=== PATIENT | female | born 1960 | race Caucasian/White ===

== ENCOUNTER 2018-06-28 12:35 | Observation (INO) ==
--- NOTE | 2018-06-28 13:03 | Emergency Department Note ---
Disposition Clinical Impression: TIA (transient ischemic attack), Weakness Disposition: Admitted As Inpatient Condition: Good Time of Disposition: 18:00 General Adult HPI - General Chief complaint: ED Neuro Symptoms/Deficit Stated complaint: R/O Stroke from UC Source: patient, family Limitations: no limitations Nursing Notes Reviewed: Yes Vital Signs Reviewed: Yes - History of Present Illness HPI Narrative: 57-year-old female with past medical history of hypertension, insulin-dependent diabetes, hyperlipidemia, and TIA presents for chief complaint of right-sided weakness that she noticed around 2:30 AM. She states that she felt fine when she went to bed at 10 PM. She going to the urgent care today because with her numbness and weakness to her right arm she thought she might of broken a bone. She was told of the urgent care that she probably had a stroke and should come to the hospital immediately. The patient notes subjective sensory deficit to the right upper and right lower extremity which is worse in the right upper extremity. She has weakness as well to the right upper and right lower extremity worse to the right upper extremity. She has mild dysarthria without any aphasia or confusion. She notes that she had a diffuse headache this morning which is unusual for her, but has remitted spontaneously. No associated fever, neck pain, vomiting, chest pain or shortness of breath, recent fall or injury, GI or symptoms. Pain Scale: 0 - Related Data Home Medications Medication Instructions Recorded Confirmed Albuterol Sulfate [Albuterol 1 puff IH Q6-8H PRN 06/28/18 06/28/18 Inhaler] Albuterol Sulfate [Proair Hfa] 2 puff IH Q6-12H PRN 06/28/18 06/28/18 Aripiprazole [Abilify] 15 mg PO HS 06/28/18 06/28/18 Citalopram Hydrobromide [Celexa] 60 mg PO HS 06/28/18 06/28/18 Colestipol HCl [Colestid] 2 gm PO BID 06/28/18 06/28/18 Empagliflozin [Jardiance] 25 mg PO DAILY 06/28/18 06/28/18 Furosemide [Lasix] 40 mg PO DAILY 06/28/18 06/28/18 Gabapentin [Neurontin] 800 mg PO QID 06/28/18 06/28/18 Insulin Glargine [Lantus] 12 unit SQ 06/28/18 06/28/18 Insulin LISPRO [HumaLOG] 0 units SQ TIDWM 06/28/18 06/28/18 Lisinopril [Zestril] 5 mg PO DAILY 06/28/18 06/28/18 Metformin HCl 1,000 mg PO BID 06/28/18 06/28/18 Morphine Sulfate [Morphine Sulfate 60 mg PO Q8-10H PRN 06/28/18 06/28/18 ER] Pantoprazole Sodium [Protonix] 40 mg PO DAILY 06/28/18 06/28/18 Potassium Chloride [K-Tab ER] 20 meq PO BID 06/28/18 06/28/18 Ropinirole HCl [Requip] 2 mg PO BID 06/28/18 06/28/18 Tizanidine HCl [Zanaflex] 4 mg PO TID 06/28/18 06/28/18 clonazePAM [Klonopin] 1 mg PO TID 06/28/18 06/28/18 Allergies Allergy/AdvReac Type Severity Reaction Status Date / Time NSAIDS (Non-Steroidal Allergy Rash Verified 06/13/16 21:52 Anti-Inflamma All systems ED: reviewed and negative except as stated. Past Medical History - Past Medical History Attestation: Yes The following information was validated with the patient. 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 NATUROPATHIC history: Reports: bilateral tubal ligation - Social History Smoking Status: Unknown if ever smoked Smokeless Tobacco Status: No Alcohol use: Reports: unknown Drug use: Reports: none Physical Exam - General Limitations: no limitations General appearance: alert, in no apparent distress - Head Head exam: atraumatic, normocephalic, normal inspection - Eye Eye exam: Present: normal appearance, PERRL, EOMI - ENT ENT exam: normal exam, normal oropharynx, mucous membranes moist - Neck Neck exam: Present: normal inspection, full ROM, trachea midline - Chest Chest inspection: Present: normal inspection, symmetric chest wall rise - Respiratory Respiratory exam: Present: normal lung sounds bilaterally - Cardiovascular Cardiovascular exam: Present: regular rate, normal rhythm, normal heart sounds - Abdominal Exam Abdominal exam: Present: soft, Non-Tender. Absent: tenderness, distention, guarding, rebound, rigidity - Extremities Exam Extremities exam: Present: normal inspection. Absent: tenderness, pedal edema, calf tenderness - Back Exam Back exam: Present: normal inspection, full ROM - Neurological Exam Neurological exam: Present: alert, other (Patient with normal extraocular motions and pupillary response. She has minimal dysarthria and flattened nasolabial fold on the right. She has minimal resistance to gravity in the right upper extremity. She has drift in the right lower extremity. She has subjective sensory deficit in the right upper and right lower extremity. Normal coordination other than to the right upper and right lower extremity which cannot be tested due to weakness. Normal cognition.) - Psychiatric Psychiatric exam: Present: normal affect, normal mood - Skin Skin exam: Present: warm, dry, intact Course Course Narrative: Patient was made a stroke alert after my initial assessment. Last known well was about 13 hours ago. EKG interpreted by me shows normal sinus rhythm at 78 with normal axis and intervals. Normal ST segments. Normal EKG. Stroke neurologist at [facility] Dr. Adhikari does not recommend TPA as patient is outside the window despite negative noncontrast CT scan of the brain. Dr. Adhikari recommends CTA head and neck to rule out large vessel occlusion prior to determination of disposition. CTA head and neck was negative. On reassessment, patient's symptoms are much better, but not completely resolved. Patient was given aspirin and admitted to medicine here for further evaluation and management of her right-sided weakness. Vital Signs Temperature 98.9 F 06/28/18 12:40 Pulse Rate 70 06/28/18 12:40 Respiratory Rate 18 06/28/18 12:40 Blood Pressure 162/72 06/28/18 12:40 O2 Sat by Pulse Oximetry 97 06/28/18 12:40 Temperature 98.4 F 06/28/18 18:48 Pulse Rate 85 06/28/18 18:48 Respiratory Rate 17 06/28/18 18:48 Blood Pressure 115/75 06/28/18 18:48 O2 Sat by Pulse Oximetry 91 06/28/18 18:48 Oxygen Delivery Oxygen Delivery Room Air Medical Decision Making - Lab Data Result diagrams: 06/28/18 12:56 06/28/18 12:56 Lab Results 06/28/18 06/28/18 06/28/18 Range/Units 12:44 12:56 12:56 WBC 7.4 (4.3-11.1) K/mcL RBC 4.00 (3.82-4.97) M/mcL Hgb 12.7 (11.5-15.4) g/dL Hct 38.9 (35.3-44.9) % MCV 97.3 (83.0-100.0) fL MCH 31.8 (28.0-33.3) pg MCHC 32.6 (31.6-35.5) g/dL RDW 12.7 (11.5-14.5) % Plt Count 169 (140-400) K/mcL MPV 11.1 (9.4-12.4) fL PT 10.9 (9.4-12.1) Seconds INR 1.0 APTT 31.1 (26.0-36.0) Seconds Sodium (136-145) mEq/L Potassium (3.5-5.1) mEq/L Chloride (98-107) mEq/L Carbon Dioxide (23-29) mEq/L BUN (6-20) mg/dL Creatinine (0.60-1.20) mg/dL Est GFR ( Amer) (> 60) Est GFR (Non-Af Amer) (> 60) BUN/Creatinine Ratio (6-26) Glucose (70-105) mg/dL POC Glucose 271 H (70-99) mg/dL Calculated Osmolality (280-300) Calcium (8.6-10.3) mg/dL Troponin I (< 0.04) ng/mL 06/28/18 Range/Units 12:56 WBC (4.3-11.1) K/mcL RBC (3.82-4.97) M/mcL Hgb (11.5-15.4) g/dL Hct (35.3-44.9) % MCV (83.0-100.0) fL MCH (28.0-33.3) pg MCHC (31.6-35.5) g/dL RDW (11.5-14.5) % Plt Count (140-400) K/mcL MPV (9.4-12.4) fL PT (9.4-12.1) Seconds INR APTT (26.0-36.0) Seconds Sodium 137 (136-145) mEq/L Potassium 4.1 (3.5-5.1) mEq/L Chloride 102 (98-107) mEq/L Carbon Dioxide 28 (23-29) mEq/L BUN 12 (6-20) mg/dL Creatinine 0.73 (0.60-1.20) mg/dL Est GFR ( Amer) > 60 (> 60) Est GFR (Non-Af Amer) > 60 (> 60) BUN/Creatinine Ratio 16 (6-26) Glucose 307 H (70-105) mg/dL POC Glucose (70-99) mg/dL Calculated Osmolality 295 (280-300) Calcium 9.1 (8.6-10.3) mg/dL Troponin I < 0.03 (< 0.04) ng/mL
[2018-06-28 13:19] LABS: Hematocrit 38.9 % (35.3-44.9); Hemoglobin 12.7 g/dL (11.5-15.4); Mean Corpuscular HGB Conc 32.6 g/dL (31.6-35.5); Mean Corpuscular Hemoglobin 31.8 pg (28.0-33.3); Mean Corpuscular Volume 97.3 fL (83.0-100.0); Mean Platelet Volume 11.1 fL (9.4-12.4); Platelet Count 169 K/mcL (140-400); Red Cell Distribution Width 12.7 % (11.5-14.5)
[2018-06-28 13:26] LABS: Prothrombin Time 10.9 Seconds (9.4-12.1)
[2018-06-28] MEDS ORDERED: Isovue-370 500 ML BOTTLE IVP ONE (13:27)
[2018-06-28 13:29] LABS: Activated Partial Thrombo Time 31.1 Seconds (26.0-36.0)
[2018-06-28 13:40] LABS: BUN/Creatinine Ratio 16 (6-26); Blood Urea Nitrogen 12 mg/dL (6-20); Calcium 9.1 mg/dL (8.6-10.3); Carbon Dioxide 28 mEq/L (23-29); Chloride 102 mEq/L (98-107); Glucose 307 mg/dL (70-105); Osmolality,Calculated 295 (280-300); Potassium 4.1 mEq/L (3.5-5.1); Sodium 137 mEq/L (136-145); Troponin I < 0.03 ng/mL (< 0.04); eGFR For Non-African Americans > 60 (> 60)
[2018-06-28] MEDS ORDERED: Aspirin 81 MG TAB.CHEW PO ONE (14:45)
[2018-06-28] MEDS ORDERED: *HR* Morphine Immed Rel 30 MG TABLET PO ONE (14:48)
--- NOTE | 2018-06-28 15:30 | Event Note ---
Date of Encounter: 06/28/18 Time of Encounter: 15:00 I saw evaluated and examined this patient and my medical decision-making was reviewed with the Resident Physician, Caity Adams. I agree with the documented findings, disposition and treatment plan as described except to any changes set forth below. We independently had [id number] contact with the patient. Patient with a history of diabetes, hypertension, hyperlipidemia who presented to the ER with complaints of right upper and lower extremity weakness and numbness. She reports that she woke up at around 2:30 with these symptoms. She thought she may have numbness due to not sleeping) she went back to bed. However this morning her symptoms did not resolve so she decided to come to the ER. Last known well time was around bedtime last night. By the time she came to the ER today, she will it was already 12 PM. So she was out of the window for TPA. She continues to have weakness in her right upper and lower extremity. She states that her family told her her speech is a little muffled. She denies any other deficits. No changes to vision. She had a TIA 20 years back and was on Plavix for some time. General: Patient is alert, no acute distress, oriented x 3 Head: atraumatic, normocephalic, ENT: Mucous membranes moist Eye: normal appearance, PERRL, no scleral icterus, no conjunctival injection Neck: normal inspection, trachea midline, full ROM, no carotid bruits Chest: normal inspection, symmetric chest rise Respiratory: Good respiratory effort. Normal breath sounds. No wheezing or crackles. Cardiovascular: Regular rate and rhythm. s1 and s2 normal No clicks, rubs, gallops, or murmurs. No pedal edema Abdomen: Abdomen is soft, nontender. Bowel sounds are present Musculoskeletal: Spontaneously moving all extremities Skin: warm, dry, intact. Neuro: Alert oriented x 3, decreased strength in right upper and lower extremities along with numbness. Patient does have slightly weak IX cranial nerve- unable to move tongue completely to the right. no facial palsy. Psych: Patient's affect is normal Possible acute ischemic stroke: Patient has right-sided weakness and some weakness of IX cranial nerve. Continue stroke workup. MRI of the brain. Monitor vital signs closely. Check A1c. Lipid profile. Aspirin, statin. 2-D echocardiogram. CTA of the head and neck does not show any significant stenosis. Telemetry monitoring. Diabetes mellitus type 2: Monitor blood sugars. Sliding scale insulin. Check A1c. Hypertension: Allow for permissive hypertension given possible acute stroke. Monitor blood pressure closely. DVT prophylaxis with subcutaneous heparin
--- NOTE | 2018-06-28 15:54 | Internal Med History&Physical ---
<Caity Adams E - Last Filed: 06/28/18 15:51> Date of Encounter: 06/28/18 Time of Encounter: 15:30 Internal Medicine - H&P: HPI Chief complaint: Right-sided weakness Admitted From: Home Plans for Post Hospital Care: Home History of present illness: Ms. Brewer is a 57 year old female past medical history of hypertension, insulin-dependent diabetes, hyperlipidemia, one instance of TIA, fibromyalgia for which she takes morphine and Percocet. Last night the patient was not feeling quite right, she said she was grumpy and just overall did not feel well. She went to bed around 10 PM due to not feeling well. Around 2:30 this morning she noticed that her right side was numb and weak, she thought she just laid on it wrong. She went to urgent care today due to numbness and weakness in her right arm. Her daughter had noticed that she had some slurring of her speech today. At the urgent care they told her to go directly to the ED. She denied any chest pain, shortness of breath, nausea, vomiting, diarrhea, fever, chills. She did state that she felt like her right side was weak in both her arm and leg as well as feeling that her mouth just did not move correctly. Head CT showed no intercranial abnormalities Head/neck CTA showed no high-grade stenosis or focal occlusion involving the i ntracranial or cervical vasculature. No evidence of acute distention. No evidence of aneurysm. Mildly prominent but subcentimeter cervical lymph nodes bilaterally. These do not meet CT size criteria for pathologic lymphadenopathy. These are conspicuous in number. Clinical correlation is recommended. Possible 17 mm right thyroid nodule. Recommend non-emergent outpatient thyroid ultrasound. Patient was admitted for possible stroke. Echocardiogram, carotid duplex, brain MRI ordered. Family history: Father's side cancer, hypertension, [place]- mother side hypertension, high cholesterol Social history; denies alcohol, smoking, illicit drug use Past Med Surg Social Fam HX - Past Medical History Medical history: diabetes Psychiatric history: anxiety, bipolar, depression - Past Surgical History Surgical History: no surgical history Additional surgical history: kidney stones. exploratory surgery - Social History Smoking Status: Unknown if ever smoked Smokeless Tobacco Status: No Alcohol use: unknown Drug use: none Internal Medicine - H&P: Meds Albuterol Sulfate [Albuterol Inhaler] 1 puff IH Q6-8H PRN 06/28/18 [History] Albuterol Sulfate [Proair Hfa] 2 puff IH Q6-12H PRN 06/28/18 [History] Aripiprazole [Abilify] 15 mg PO HS 06/28/18 [History] Citalopram Hydrobromide [Celexa] 60 mg PO HS 06/28/18 [History] Colestipol HCl [Colestid] 2 gm PO BID 06/28/18 [History] Empagliflozin [Jardiance] 25 mg PO DAILY 06/28/18 [History] Furosemide [Lasix] 40 mg PO DAILY 06/28/18 [History] Gabapentin [Neurontin] 800 mg PO QID 06/28/18 [History] Insulin Glargine [Lantus] 12 unit SQ HS 06/28/18 [History] Insulin LISPRO [HumaLOG] 0 units SQ TIDWM 06/28/18 [History] Lisinopril [Zestril] 5 mg PO DAILY 06/28/18 [History] Metformin HCl 1,000 mg PO BID 06/28/18 [History] Morphine Sulfate [Morphine Sulfate ER] 60 mg PO Q8-10H PRN 06/28/18 [History] Pantoprazole Sodium [Protonix] 40 mg PO DAILY 06/28/18 [History] Potassium Chloride [K-Tab ER] 20 meq PO BID 06/28/18 [History] Ropinirole HCl [Requip] 2 mg PO BID 06/28/18 [History] Tizanidine HCl [Zanaflex] 4 mg PO TID 06/28/18 [History] clonazePAM [Klonopin] 1 mg PO TID 06/28/18 [History] Allergy/AdvReac Type Severity Reaction Status Date / Time NSAIDS (Non-Steroidal Allergy Rash Verified 06/13/16 21:52 Anti-Inflamma All Systems PM: A 10-system review of systems was performed and is negative for pertinent findings except as documented above in the HPI. Review of systems: General: Denies change in appetite, change in weight, change in sleep patterns Heart: Patient denies racing heartbeat, applications, chest pain Respiratory: Patient denies shortness of breath, cough, chest congestion Head: Patient denies trauma, loss of consciousness EENT: Patient denies changes in vision, changes in hearing, sore throat, nasal discharge Musculoskeletal: Patient states she is had weakness in her right arm and right leg since early this morning, denies any weakness in her left side. Skin: Patient denies any rashes, new lesions Neuro: Patient does admit to having previous TIA 20 years ago, no focal deficits left from this TIA. She does state that she feels that she is having trouble talking and that she is mumbling her words. abdomen: Patient denies abdominal pain, nausea, vomiting, diarrhea : Patient denies dysuria, urgency, frequency - Constitutional Vitals: Temp Pulse Resp BP Pulse Ox 98.9 F 72 18 162/83 97 06/28/18 12:40 06/28/18 15:15 06/28/18 15:15 06/28/18 15:15 06/28/18 12:40 Exam: General: AAO 3, no acute distress, answers questions appropriately Head: normocephalic, atraumatic Eyes: CECILIA, no icterus Cardio: RRR, no mumurs, rubs, or gallops Respiratory: CTAB, no wheezing, rhonchi, rales Abd: normal bowel sounds, no gaurding or rigidity Extremties: no pedal edema, pulses equal bilaterally, warm Skin: warm, dry, intact Neuro: Focal deficits of facial nerve as well as cranial nerve IX noted by right corner of mouth droop and inability of patient to move tongue [id number]. Right-sided musculoskeletal weakness noted in both upper and lower extremities: upper right extremity showed 4 out of 5 strength testing while lower right extremity showed 3 out of 5 strength testing, no other focal deficits Internal Med - H&P Results - Labs CBC & Chem 7: 06/28/18 12:56 06/28/18 12:56 Labs: Short CBC 06/28/18 Range/Units 12:56 WBC 7.4 (4.3-11.1) K/mcL Hgb 12.7 (11.5-15.4) g/dL Hct 38.9 (35.3-44.9) % Plt Count 169 (140-400) K/mcL BMP 06/28/18 12:56 Sodium 137 Potassium 4.1 Chloride 102 Carbon Dioxide 28 BUN 12 Creatinine 0.73 Glucose 307 H Calcium 9.1 Cardiac Enzymes 06/28/18 Range/Units 12:56 Troponin I < 0.03 (< 0.04) ng/mL - Impressions ITS Impressions Head CT 06/28/18 12:56 IMPRESSION: No acute intracranial abnormality. Critical results were called by Dr. Azael Zee MD to Davis Jones DO on 06/28/2018 at 13:14. D/ / Azael Zee MD / Azael Zee MD Interpreting Provider: Azael Zee MD Head CTA 06/28/18 13:27 IMPRESSION: No high-grade stenosis or focal occlusion involving the intracranial or cervical vasculature. No evidence of acute dissection. No evidence of aneurysm. Mildly prominent but subcentimeter cervical lymph nodes bilaterally. These do not meet CT size criteria for pathologic lymphadenopathy. These are conspicuous in numbers. Clinical correlation is recommended. Possible 17 mm right thyroid nodule. Recommend nonemergent outpatient thyroid ultrasound. D/ /28/2018 14:20:26 Feng Noel MD / linda Interpreting Provider: Feng Noel MD Neck CTA 06/28/18 13:27 IMPRESSION: No high-grade stenosis or focal occlusion involving the intracranial or cervical vasculature. No evidence of acute dissection. No evidence of aneurysm. Mildly prominent but subcentimeter cervical lymph nodes bilaterally. These do not meet CT size criteria for pathologic lymphadenopathy. These are conspicuous in numbers. Clinical correlation is recommended. Possible 17 mm right thyroid nodule. Recommend nonemergent outpatient thyroid ultrasound. D/ /28/2018 14:20:26 Feng Noel MD / linda Interpreting Provider: Fneg Noel MD - Assessment and Plan (1) Acute ischemic stroke Current Visit: Yes Status: Acute Assessment and plan: Right-sided weakness in right upper and right lower extremities. 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 use Qualified Code(s): E11.8 - Type 2 diabetes mellitus with unspecified complications; Z79.4 - 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 (3) Fibromyalgia Current Visit: Yes Status: Acute Assessment and plan: Patient's home medications include oral morphine and Percocet Once these medications have been reconciled can restart (4) Hypertension Current Visit: Yes Status: Acute Assessment and plan: Allow for permissive hypertension Monitor blood pressure closely Qualifiers: Hypertension type: essential hypertension Qualified Code(s): I10 - Essential (primary) hypertension (5) DVT prophylaxis Current Visit: Yes Status: Acute Assessment and plan: Subcutaneous heparin - Time Spent With Patient Total time spent is greater than 50% in coordination of care (as documented) at patient's floor/unit and/or counseling patient: <Sharonda Cintron - Last Filed: 06/28/18 19:35> Date of Encounter: 06/28/18 Time of Encounter: 15:00 Internal Medicine - H&P: HPI Admitted From: Home History of present illness: Ms. Brewer is a 57 year old female Past Med Surg Social Fam HX - Past Medical History Attestation: Yes The following information was validated with the patient. Source: patient Medical history: diabetes, hypertension - Family History Father Hx Family Cardiac Disorders: Yes All Systems PM: A 10-system review of systems was performed and is negative for pertinent findings except as documented above in the HPI. - Constitutional Vitals: Temp Pulse Resp BP Pulse Ox 98.4 F 85 17 115/75 91 06/28/18 18:48 06/28/18 18:48 06/28/18 18:48 06/28/18 18:48 06/28/18 18:48 Internal Med - H&P Results - Labs CBC & Chem 7: 06/28/18 12:56 06/28/18 12:56 Labs: Short CBC 06/28/18 Range/Units 12:56 WBC 7.4 (4.3-11.1) K/mcL Hgb 12.7 (11.5-15.4) g/dL Hct 38.9 (35.3-44.9) % Plt Count 169 (140-400) K/mcL BMP 06/28/18 12:56 Sodium 137 Potassium 4.1 Chloride 102 Carbon Dioxide 28 BUN 12 Creatinine 0.73 Glucose 307 H Calcium 9.1 Cardiac Enzymes 06/28/18 Range/Units 12:56 Troponin I < 0.03 (< 0.04) ng/mL - Impressions ITS Impressions Head CT 06/28/18 12:56 IMPRESSION: No acute intracranial abnormality. Critical results were called by Dr. Azael Zee MD to Davis Jones DO on 06/28/2018 at 13:14. D/ / Azael Zee MD / Azael Zee MD Interpreting Provider: Azael Zee MD Head CTA 06/28/18 13:27 IMPRESSION: No high-grade stenosis or focal occlusion involving the intracranial or cervical vasculature. No evidence of acute dissection. No evidence of aneurysm. Mildly prominent but subcentimeter cervical lymph nodes bilaterally. These do not meet CT size criteria for pathologic lymphadenopathy. These are conspicuous in numbers. Clinical correlation is recommended. Possible 17 mm right thyroid nodule. Recommend nonemergent outpatient thyroid ultrasound. D/ /28/2018 14:20:26 Feng Noel MD / linda Interpreting Provider: Feng Noel MD Neck CTA 06/28/18 13:27 IMPRESSION: No high-grade stenosis or focal occlusion involving the intracranial or cervical vasculature. No evidence of acute dissection. No evidence of aneurysm. Mildly prominent but subcentimeter cervical lymph nodes bilaterally. These do not meet CT size criteria for pathologic lymphadenopathy. These are conspicuous in numbers. Clinical correlation is recommended. Possible 17 mm right thyroid nodule. Recommend nonemergent outpatient thyroid ultrasound. D/ /28/2018 14:20:26 Feng Noel MD / linda Interpreting Provider: Feng Noel MD Brain MRI 06/28/18 15:39 IMPRESSION: No acute infarct. D/ / Zander Inman MD / Zander Inman MD Interpreting Provider: Zadner Inman MD - Time Spent With Patient Total time spent is greater than 50% in coordination of care (as documented) at patient's floor/unit and/or counseling patient: - Stroke Is the patient on any antithrombotics?: No Are there any contradictions to antithrombotics?: No - Attending Attestation I saw evaluated and examined this patient and my medical decision-making was reviewed with the Resident Physician, Caity Adams. I agree with the documented findings, disposition and treatment plan as described except to any changes set forth below. We independently had [id number] contact with the patient. Patient with a history of diabetes, hypertension, hyperlipidemia who presented to the ER with complaints of right upper and lower extremity weakness and numbness. She reports that she woke up at around 2:30AM with these symptoms. She thought she may have numbness due to not sleeping) she went back to bed. However this morning her symptoms did not resolve so she decided to come to the ER. Last known well time was around bedtime last night. By the time she came to the ER today, she will it was already 12 PM. So she was out of the window for TPA. She continues to have weakness in her right upper and lower extremity. She states that her family told her her speech is a little muffled. She denies any other deficits. No changes to vision. She had a TIA 20 years back and was on Plavix for some time. General: Patient is alert, no acute distress, oriented x 3 Head: atraumatic, normocephalic, ENT: Mucous membranes moist Eye: normal appearance, PERRL, no scleral icterus, no conjunctival injection Neck: normal inspection, trachea midline, full ROM, no carotid bruits Chest: normal inspection, symmetric chest rise Respiratory: Good respiratory effort. Normal breath sounds. No wheezing or crackles. Cardiovascular: Regular rate and rhythm. s1 and s2 normal No clicks, rubs, ga llops, or murmurs. No pedal edema Abdomen: Abdomen is soft, nontender. Bowel sounds are present Musculoskeletal: Spontaneously moving all extremities Skin: warm, dry, intact. Neuro: Alert oriented x 3, decreased strength in right upper and lower extremities along with numbness. Patient does have slightly weak IX cranial nerve- unable to move tongue completely to the right. no facial palsy. Psych: Patient's affect is normal Possible acute ischemic stroke: Patient has right-sided weakness and some weakness of IX cranial nerve. Continue stroke workup. MRI of the brain. Monitor vital signs closely. Check A1c. Lipid profile. Aspirin, statin. 2-D echocardiogram. CTA of the head and neck does not show any significant stenosis. Telemetry monitoring. Diabetes mellitus type 2: Monitor blood sugars. Sliding scale insulin. Check A1c. Hypertension: Allow for permissive hypertension given possible acute stroke. Monitor blood pressure closely. DVT prophylaxis with subcutaneous heparin
[2018-06-28] MEDS ORDERED: *HR* Morphine Sulfate SR (12 HR) 60 MG TABLET.ER PO PRN (16:17)
[2018-06-28] MEDS ORDERED: D5% in Water 1,000 ML IVC PRN (16:20)
[2018-06-28] MEDS ORDERED: *HR* Dextrose 50 % in Water (Syg) 50 ML SYRINGE IVP PRN (16:20)
[2018-06-28] MEDS ORDERED: Dextrose Gel 15 GM/37.5 ML TUBE PO PRN ×2 (16:20)
[2018-06-28] MEDS: *HR* Heparin 5,000 UNIT/ML VIAL SQ SCH (17:44)
[2018-06-28] MEDS: Gabapentin 400 MG CAPSULE PO SCH ×2 (17:45→22:00)
[2018-06-28] MEDS: Insulin LISPRO 300 UNITS/3 ML VIAL SQ SCH (17:45)
[2018-06-28] MEDS ORDERED: Insulin LISPRO 300 UNITS/3 ML VIAL SQ SCH (21:00)
[2018-06-28] MEDS ORDERED: ARIPiprazole 10 MG TABLET PO SCH (21:00)
[2018-06-28] MEDS: rOPINIRole 1 MG TABLET PO SCH (21:59)
[2018-06-28] MEDS: clonazePAM 1 MG TABLET PO SCH (22:00)
[2018-06-28] MEDS ORDERED: *HR* Morphine Sulfate SR (12 HR) 30 MG TABLET.ER PO PRN (22:30)
[2018-06-28] MEDS ORDERED: NON-FORMULARY MEDICATION 1 EACH EACH (Insulin Glargine [Lantus] 12 UNIT) SQ SCH (22:45)
[2018-06-28] MEDS ORDERED: Insulin DETEMIR 100 UNIT/ML X5UNITS SQ SCH ×2 (22:45→23:00)
[2018-06-28] MEDS ORDERED: *HR* Morphine Sulfate SR (12 HR) 30 MG TABLET.ER PO SCH (23:00)
[2018-06-28] MEDS: *HR* Morphine Sulfate SR (12 HR) 30 MG TABLET.ER PO SCH (23:34)
[2018-06-29 02:22] LABS: Prothrombin Time 11.3 Seconds (9.4-12.1)
[2018-06-29 02:37] LABS: Alanine Aminotransferase 17 Units/L (7-52); Albumin 3.7 g/dL (3.5-5.7); Albumin/Globulin Ratio 1.5 (1.1-2.2); Alkaline Phosphatase 110 Units/L (34-104); Aspartate Amino Transferase 15 Units/L (13-39); BUN/Creatinine Ratio 25 (6-26); Bilirubin,Total 0.3 mg/dL (0.3-1.0); Blood Urea Nitrogen 16 mg/dL (6-20); Carbon Dioxide 29 mEq/L (23-29); Chloride 103 mEq/L (98-107); Chol/HDL Ratio 3.1 (0-4.9); Cholesterol 154 mg/dL (< 200); Globulin 2.5 g/dL (2.4-3.5); Glucose 238 mg/dL (70-105); HDL Cholesterol 50 mg/dL (40-59); LDL Cholesterol,Calculated 68 mg/dL (0-99); Osmolality,Calculated 297 (280-300); Sodium 139 mEq/L (136-145); Total Protein 6.2 g/dL (6.4-8.9); Triglycerides 178 mg/dL (< 150); Troponin I < 0.03 ng/mL (< 0.04); eGFR For Non-African Americans > 60 (> 60)
[2018-06-29] MEDS: *HR* Heparin 5,000 UNIT/ML VIAL SQ SCH ×2 (05:19→17:09)
[2018-06-29 08:03] LABS: Bilirubin,Urine Negative (Negative); Blood,Urine Negative (Negative); Clarity,Urine Clear (Clear); Color,Urine Yellow (Yellow); Glucose,Urine (UA) 100 mg/dL (Normal); Ketones,Urine Negative (Negative); Leukocyte Esterase,Urine Negative (Negative); Nitrite,Urine Negative (Negative); PH,Urine 5.5 pH Units (5.0-8.0); Protein,Urine Trace mg/dL (Neg-Trace); Specific Gravity,Urine > 1.030 (1.010-1.025); Urobilinogen,Urine Normal (Normal)
[2018-06-29] MEDS: rOPINIRole 1 MG TABLET PO SCH (08:09)
[2018-06-29] MEDS: *HR* Morphine Sulfate SR (12 HR) 30 MG TABLET.ER PO SCH ×2 (08:09→15:48)
[2018-06-29] MEDS: Gabapentin 400 MG CAPSULE PO SCH ×3 (08:10→17:08)
[2018-06-29] MEDS: Insulin LISPRO 300 UNITS/3 ML VIAL SQ SCH ×3 (08:10→17:08)
[2018-06-29] MEDS: clonazePAM 1 MG TABLET PO SCH ×2 (08:10→15:49)
[2018-06-29] MEDS: *HR* OxyCODONE/APAP 10/325 TABLET PO PRN ×2 (08:17→15:52)
[2018-06-29] MEDS ORDERED: Perflutren Lipid Microsphere 1.3 ML in 0.9 % Sodium Chloride 8.7 ML IVP ONE (08:20)
[2018-06-29] MEDS ORDERED: Aspirin 81 MG TAB.CHEW PO SCH (09:00)
[2018-06-29] MEDS ORDERED: Furosemide 40 MG TABLET PO SCH (09:00)
[2018-06-29 10:14] LABS: Estimated Average Glucose 217 mg/dl; Hemoglobin A1C 9.2 %
--- NOTE | 2018-06-29 11:48 | Neurology - Consult Note ---
<Tucker Dietrich J - Last Filed: 06/29/18 16:49> Date of Encounter: 06/29/18 Time of Encounter: 11:42 Assessment and Plan (1) TIA (transient ischemic attack) Status: Acute CVA ruled out DDX; TIA, Complex migraine, vs supratentorial She presented with h/a, and monocular diplopia, right facial droop, slurred speech, right arm/leg weakness and numbness All sx resolved with the exception of Rt arm weakness; now having burning and tingling in right arm Multiple risk factors for CVA including obesity, DM, HLD, HTN, prior history of TIA With concerns for CVA neuroimaging obtained; MRI brain negative for acute infarct CTA head and neck, CT head unremarkable Neuro exam today reveals some give way weakness and right arm otherwise is nonfocal Today she is reporting right posterior neck pain with pain radiating into right shoulder and right arm Pain is described as burning/tingling. She does have UMN findings with diffuse hyperreflexia As such, one could consider myelopathy in differential; MRI C-spine pending If normal may need outpatient f/u with EMG if s/x persist Recommendations d/w IM team History of Present Illness Chief complaint: Right-sided weakness HPI: Ms. Brewer is a 57 year old female with a PMH of anxiety, bipolar, depression, diabetes, HLD, HTN, TIA and fibromyalgia. She presents to [facility] with concerns for stroke. She reports that she went to bed yesterday evening shortly after 10 PM and overall just felt unwell. At around approximately 2:30 AM on 06/28 she awoke with a headache behind her right eye, and noticed that she was having right arm and leg numbness and weakness. However, she reports that she went back to sleep. She will reawoke a little later in the morning and noticed that the numbness and weakness in the right arm and leg persisted prompting evaluation in the urgent care and then subsequently the emergency department. She states that family members noticed some right facial droop and she was having some slurred speech as well. She denies any dizziness, ataxia, visual changes, dysphagia, chest pain, palpitations, nausea, vomiting, diarrhea, urina ry symptoms. At the time of my assessment this morning she reports that her symptoms have improved significantly but notes that her right arm is still weaker than her left. She reports that this morning she is now experiencing burning and numbness in her right arm as well as having posterior neck pain and her headache has returned. Stroke workup included a CT of the head which was unremarkable. An MRI of the brain was also obtained and was also unremarkable. CTA of the head and neck showed no high-grade stenosis or focal occlusion of intracranial cervical vasculature. Past Med Surg Social Fam HX - Past Medical History Medical history: diabetes, hypertension Psychiatric history: anxiety, bipolar, depression - Past Surgical History Surgical History: hysterectomy Additional surgical history: kidney stones. exploratory surgery - Social History Smoking Status: Never smoker Smokeless Tobacco Status: No Alcohol use: none Drug use: none - Family History Father Hx Family Cardiac Disorders: Yes Medications and Allergies Albuterol Sulfate [Albuterol Inhaler] 1 puff IH Q6-8H PRN 06/28/18 [History] Albuterol Sulfate [Proair Hfa] 2 puff IH Q6-12H PRN 06/28/18 [History] Aripiprazole [Abilify] 15 mg PO HS 06/28/18 [History] Citalopram Hydrobromide [Celexa] 60 mg PO HS 06/28/18 [History] Colestipol HCl [Colestid] 2 gm PO BID 06/28/18 [History] Empagliflozin [Jardiance] 25 mg PO DAILY 06/28/18 [History] Furosemide [Lasix] 40 mg PO DAILY 06/28/18 [History] Gabapentin [Neurontin] 800 mg PO QID 06/28/18 [History] Insulin Glargine [Lantus] 12 unit SQ HS 06/28/18 [History] Insulin LISPRO [HumaLOG] 0 units SQ TIDWM 06/28/18 [History] Lisinopril [Zestril] 5 mg PO DAILY 06/28/18 [History] Metformin HCl 1,000 mg PO BID 06/28/18 [History] Morphine Sulfate [Morphine Sulfate ER] 60 mg PO Q8-10H PRN 06/28/18 [History] Pantoprazole Sodium [Protonix] 40 mg PO DAILY 06/28/18 [History] Percocet 10/325 MG 20 mg PO Q8H PRN 06/28/18 [History] Potassium Chloride [K-Tab ER] 20 meq PO BID 06/28/18 [History] Ropinirole HCl [Requip] 2 mg PO BID 06/28/18 [History] Tizanidine HCl [Zanaflex] 4 mg PO TID 06/28/18 [History] clonazePAM [Klonopin] 1 mg PO TID 06/28/18 [History] Aspirin 81 mg PO DAILY #30 tab.chew 06/29/18 [Rx] Atorvastatin [Lipitor] 40 mg PO HS #30 tablet 06/29/18 [Rx] Allergy/AdvReac Type Severity Reaction Status Date / Time NSAIDS (Non-Steroidal Allergy Rash Verified 06/13/16 21:52 Anti-Inflamma All Systems: The remainder of the systems were reviewed and are negative Review of Systems: REVIEW OF SYSTEMS GENERAL: Negative for any nausea, vomiting, fevers, chills NEUROLOGIC: Negative for any visual changes, dysphagia, ataxia Positive-slurred speech, right facial droop, right arm/leg weakness. Today is reporting a headache behind her right eye and right-sided neck pain with pain radiating to right shoulder and arm. Right arm numbness PSYCH: Positive-anxiety HEENT: Negative for any head trauma, neck trauma, neck stiffness CARDIAC: Negative for any chest pain, dyspnea, palpitations GENITOURINARY: Negative for any dysuria, hematuria, incontinence. MUSCULOSKELETAL: Positive-right arm and leg weakness, decreased activity tolerance Physical Examination - Vital Signs Vital Signs: Initial Vital Signs Temp Pulse Resp BP Pulse Ox 98.9 F 70 18 162/72 97 06/28/18 12:40 06/28/18 12:40 06/28/18 12:40 06/28/18 12:40 06/28/18 12:40 - Exam Exam: Examination: General Examination: *CONSTITUTIONAL: Alert and oriented x3, no acute distress, *GENERAL APPEARANCE OF PATIENT obese female, overall generally healthy- appearing *EYES: pupils equal, round, reactive to light and accommodation, conjunctiva clear *CARDIOVASCULAR RRR, no peripheral edema, distal temperature normal, dorsalis pedis pulses normal. 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 Has give way weakness of right arm. However, patient was witnessed to use right arm to push herself up in bed and pull herself up out of bed without any noted weakness. 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 *MUSCLE TONE IN THE UPPER AND LOWER EXTREMITIES normal. No abnormal movements, fasciculations or atrophy identified. Neurological: *ORIENTATION to person, situation, time and place *RECURRENT AND REMOTE MEMORY intact *ATTENTION AND CONCENTRATION are normal *LANGUAGE FUNCTION no significant aphasia or dysarthia was noted. *FUND OF KNOWLEDGE aware of current events, past history, vocabulary *MENTAL attention span and concentration normal. *CN II optic fundi were normal, no papilledema noted. *CN III,IV, PERRLA extraocular eye movements were full, no nystagmus and no ptosis noted. *CN V shows normal sensation and jaw opens symmetrically. *CN VII shows normal facial movement symmetrically, upper and lower bilaterally. *CN VIII shows no significant hearing loss on exam *CN IX,,X palate elevated symmetrically *CN XI normal strength in the sternocleidomastoid muscles, symmetrical shoulder shrugging. *CN XII tongue protruded in the midline, with normal strength and movement. *SENSORY EXAMINATION light touch intact *REFLEXES: deep tendon reflexes were hyperreflexic bilaterally, bicep, tricep, brachial radialis, patellar and Achilles *CEREBELLAR TESTING normal finger to nose, heel/knee/daniel *PAIN LEVEL 6/10 headache behind her right eye, right posterior neck pain, burning/tingling right arm pain Results - Laboratory Findings CBC and BMP: 06/28/18 12:56 06/29/18 02:03 Abnormal lab findings: Abnormal lab results Glucose 238 mg/dL (70-105) H 06/29/18 02:03 POC Glucose 272 mg/dL (70-99) H 06/28/18 16:06 9.2 % (-5.6) H 06/29/18 02:03 110 Units/L (34-104) H 06/29/18 02:03 6.2 g/dL (6.4-8.9) L 06/29/18 02:03 Triglycerides 178 mg/dL (< 150) H 06/29/18 02:03 VLDL Cholesterol, Calc 36 mg/dL (< 31) H 06/29/18 02:03 Ur Specific [place] > 1.030 (1.010-1.025) H 06/29/18 07:30 100 mg/dL (Normal) H 06/29/18 07:30 - Diagnostic Findings Additional findings: MR/MR head/brain wo con IMPRESSION: No acute infarct. Consult Discharge Plan - Plan Instructions: Diabetes Mellitus Type 2 in Adults (DC) Additional Instructions: 1. Continue Aspirin and Atorvastatin 2. Follow-up with Neurology as directed for more testing 3. Return to the ED for recurrent symptoms Referrals: Diogo Salvador MD [Primary Care Provider] - (Appointment has been requested. ) Prescriptions: Aspirin 81 mg PO DAILY #30 tab.chew Atorvastatin [Lipitor] 40 mg PO HS #30 tablet <Yosi Causey - Last Filed: 06/29/18 18:21> Date of Encounter: 06/29/18 Assessment and Plan (1) TIA (transient ischemic attack) Status: Acute Ultimately I believe that we are either dealing with complicated migraine, or perhaps other supratentorial influences may be at play. She does have diffuse hyperreflexia, as well as an MRI of the cervical spine that does reveal some minor abnormalities however does not completely explain this case. In any regard I feel it is okay for her to be discharged home and follow-up with me as an outpatient. Likely complete an EMG of the left upper extremity at that time. I agree with the documentation of the YARD COUPLER as stated above. History of Present Illness HPI: I have personally performed a [id number] assessment of the patient and have reviewed the PA/MUD PLANT OPERATOR note. My impressions are as follows: I agree with the history of present illness documented as above by the YARD COUPLER. Patient presents with a right-sided headache followed by right upper extremity and lower extremity weakness and paresthesia. She has had CTA of the brain and neck as well as MRI of the brain neither of which revealed evidence of acute ischemia or evidence of stenosis. Suspect that this phenomenon may be based on migraine pathology. All Systems: The remainder of the systems were reviewed and are negative Review of Systems: The balance of the systems review is negative. Physical Examination - Vital Signs Vital Signs: Initial Vital Signs Temp Pulse Resp BP Pulse Ox 98.9 F 70 18 162/72 97 06/28/18 12:40 06/28/18 12:40 06/28/18 12:40 06/28/18 12:40 06/28/18 12:40 - Exam Exam: I have personally performed a [id number] assessment of the patient and have reviewed the PA/MUD PLANT OPERATOR note. My impressions are as follows: I did perform a complete independent neurologic examination of this patient. I concur with the neurologic examination documented above. Results - Laboratory Findings CBC and BMP: 06/28/18 12:56 06/29/18 02:03 Abnormal lab findings: Abnormal lab results Glucose 238 mg/dL (70-105) H 06/29/18 02:03 POC Glucose 201 mg/dL (70-99) H 06/29/18 15:38 9.2 % (-5.6) H 06/29/18 02:03 110 Units/L (34-104) H 06/29/18 02:03 6.2 g/dL (6.4-8.9) L 06/29/18 02:03 Triglycerides 178 mg/dL (< 150) H 06/29/18 02:03 VLDL Cholesterol, Calc 36 mg/dL (< 31) H 06/29/18 02:03 Ur Specific [place] > 1.030 (1.010-1.025) H 06/29/18 07:30 100 mg/dL (Normal) H 06/29/18 07:30
--- NOTE | 2018-06-29 14:44 | Internal Med Progress Note ---
Hospitalist Progress Note - Encounter Date of Encounter: 06/29/18 - Exam Vitals: Temp Pulse Resp BP Pulse Ox 98.0 F 81 18 110/76 97 06/29/18 11:55 06/29/18 11:55 06/29/18 11:56 06/29/18 11:55 06/29/18 11:56 - Time Spent with Patient Total time spent is greater than 50% in coordination of care (as documented) at patient's floor/unit and/or counseling patient: Internal Medicine: Result - Labs CBC & Chem 7: 06/28/18 12:56 06/29/18 02:03 Labs: BMP 06/29/18 02:03 Sodium 139 Potassium 4.0 Chloride 103 Carbon Dioxide 29 BUN 16 Creatinine 0.63 Glucose 238 H Calcium 9.0 Cardiac Enzymes 06/29/18 Range/Units 02:03 Troponin I < 0.03 (< 0.04) ng/mL Liver Function 06/29/18 Range/Units 02:03 Total Bilirubin 0.3 (0.3-1.0) mg/dL AST 15 (13-39) Units/L ALT 17 (7-52) Units/L Alkaline Phosphatase 110 H (34-104) Units/L Albumin 3.7 (3.5-5.7) g/dL Urine 06/29/18 Range/Units 07:30 Urine Color Yellow (Yellow) Urine Clarity Clear (Clear) Urine pH 5.5 (5.0-8.0) pH Units Ur Specific [place] > 1.030 H (1.010-1.025) Urine Protein Trace (Neg-Trace) mg/dL Urine Glucose (UA) 100 H (Normal) mg/dL - ABG Interpretation ABG results: PT/INR, D-dimer PT 11.3 Seconds (9.4-12.1) 06/29/18 02:03 - Impressions Impressions Head CTA 06/28/18 13:27 IMPRESSION: 1. No high-grade stenosis or focal occlusion involving intracranial or cervical vasculature. No evidence of acute dissection. No evidence of aneurysm. 2. Mildly prominent but subcentimeter cervical lymph nodes bilaterally. These do not meet CT size criteria for pathologic lymphadenopathy. However, these are conspicuous in numbers. Clinical correlation is recommended. 3. Possible 17 mm right thyroid nodule. Recommend nonemergent outpatient thyroid ultrasound. RECOMMENDATIONS: Managing Incidental Thyroid Nodule Detected at CT or MRI or US 1. Further evaluation by thyroid Ultrasound recommended for these incidental nodules: Patient Age 18 years or less - Nodule of any size Patient Age 19-34 years old - Nodule 1 cm in size or greater Patient Age 35 years or more - Nodule 1.5 cm in size or greater Note: These recommendations do not apply to pts. w/ increased risk for thyroid cancer or pts. with symptomatic thyroid disease. Recommendations for f/u of Incidental Thyroid Nodules (ITN) found on CT, MR, NM and Extrathyroidal US are based upon the ACR white paper and Go 3-tiered system for managing ITNs: J Am Inocencia Radiol. 2015 Mar;12(2): 143-50 D/ /28/2018 14:20:26 Feng Noel MD / [facility] Interpreting Provider: Feng Noel MD Neck CTA 06/28/18 13:27 IMPRESSION: 1. No high-grade stenosis or focal occlusion involving intracranial or cervical vasculature. No evidence of acute dissection. No evidence of aneurysm. 2. Mildly prominent but subcentimeter cervical lymph nodes bilaterally. These do not meet CT size criteria for pathologic lymphadenopathy. However, these are conspicuous in numbers. Clinical correlation is recommended. 3. Possible 17 mm right thyroid nodule. Recommend nonemergent outpatient thyroid ultrasound. RECOMMENDATIONS: Managing Incidental Thyroid Nodule Detected at CT or MRI or US 1. Further evaluation by thyroid Ultrasound recommended for these incidental nodules: Patient Age 18 years or less - Nodule of any size Patient Age 19-34 years old - Nodule 1 cm in size or greater Patient Age 35 years or more - Nodule 1.5 cm in size or greater Note: These recommendations do not apply to pts. w/ increased risk for thyroid cancer or pts. with symptomatic thyroid disease. Recommendations for f/u of Incidental Thyroid Nodules (ITN) found on CT, MR, NM and Extrathyroidal US are based upon the ACR white paper and Go 3-tiered system for managing ITNs: J Am Inocencia Radiol. 2015 Mar;12(2): 143-50 D/ / 06/28/2018 14:20:26 Feng Noel MD / linda Interpreting Provider: Feng Noel MD Brain MRI 06/28/18 15:39 IMPRESSION: No acute infarct. D/ / Zander Inman MD / Zander Inman MD Interpreting Provider: Zander Inman MD Cervical Spine MRI 06/29/18 12:17 IMPRESSION: Limited by motion artifacts. Multilevel degenerative disc disease as described above, exacerbating congenitally narrow cervical spinal canal. Spinal canal narrowing, mild to moderate at C6-7 with mild spinal cord compression, mild at C5-6, minimal at C2-3, C3-4 and C4-5. Foraminal narrowing, moderate at right C6-7, mild to moderate at left C6-7, minimal at right C4-5 and right C5-6. Abnormal bone marrow signal in the C5 vertebral body, likely related to atypical hemangioma. D/ / Mayco Wright MD / Mayco Wright MD Interpreting Provider: Mayco Wright MD Echocardiogram 06/29/18 15:33 Impressions: LVEF 60%. Normal LV chamber size, wall thickness and function. Normal right ventricular structure and function. Mild tricuspid regurgitation. No evidence of pulmonary hypertension. Non-diagnostic of PFO with agitated saline contrast. Left Ventricular Wall Motion: Rest Echo Findings All wall segments showed normal motion. Findings: Study Quality * Technically adequate exam. ECG Findings * Normal sinus rhythm. Left Ventricle * LVEF 60%. * Normal LV chamber size, wall thickness and systolic function. * Normal left ventricular diastolic function. Right Ventricle * Normal right ventricular structure and function. Left Atrium * Normal left atrial size. Right Atrium * Normal right atrial size. Interatrial Septum * Non-diagnostic of PFO with agitated saline contrast. Aortic Valve * Trileaflet aortic valve with normal function. * No aortic stenosis. * No aortic regurgitation. Mitral Valve * Normal mitral valve structure and function. * No mitral stenosis. * No mitral regurgitation. Tricuspid Valve * Normal tricuspid valve structure. * No tricuspid stenosis. * Mild tricuspid regurgitation. * Unable to estimate RVSP due to lack of IVC visualization. RV-RA gradient 18 mmHg. * No evidence of pulmonary hypertension. Pulmonic Valve * Pulmonic valve is not well visualized. * No pulmonic stenosis. * No pulmonic regurgitation. Aorta * Normally sized aortic root. Pericardium * The pericardium appears normal. IVC * The IVC is not well evaluated. Consult Discharge Plan - Plan Referrals: Diogo Salvador MD [Primary Care Provider] - (Appointment has been requested. )
[2018-06-29 15:40] VITALS: BP 112/77
--- NOTE | 2018-06-29 16:50 | Discharge Summary ---
<Yosi Johansen - Last Filed: 06/29/18 17:09> - NOTES TO OUTPATIENT PROVIDER Notes to Outpatient Provider: F/u with neuro for possible EMG. Started on Statin and ASA. 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 Brewer is a 57 year old female with history of diabetes and hyperlipidemia who presented to the ED with several hour history of right-sided upper and lower extremity weakness as well as difficulty speaking. The patient was admitted for workup of suspected ischemic stroke and had CT of the head and neck initially which did not demonstrate high-grade stenosis or focal occlusion in the intracranial or cervical vasculature. The patient did have follow-up MRI of the brain which did not demonstrate any acute intracranial process. The patient did have carotid ultrasounds which were essentially normal as well as an echocardiogram which was also essentially normal. Her symptoms did largely resolved by the following day however we did get a neurology consult who recommended an MRI of the cervical spine which showed multilevel degenerative disc disease as well as spinal canal narrowing at multiple levels and foraminal narrowing at multiple levels. As her symptoms have largely resolved with the exception of some residual weakness in her right upper extremity with some burning and tingling, neurology recommends outpatient follow-up. The patient will be discharged to follow-up with PCP and neurology as an outpatient for possible EMG. Discharge discussed with: patient, nurse, social work, case management, micro[employer] dynamics consultant - Time Spent with Patient Total time spent providing and/or coordinating discharge services: - Discharge Medications Prescriptions: New Atorvastatin [Lipitor] 40 mg PO HS #30 tablet Aspirin 81 mg PO DAILY #30 tab.chew Continued Citalopram Hydrobromide [Celexa] 60 mg PO HS Tizanidine HCl [Zanaflex] 4 mg PO TID Ropinirole HCl [Requip] 2 mg PO BID Albuterol Sulfate [Proair Hfa] 2 puff IH Q6-12H PRN PRN Reason: Wheezing Potassium Chloride [K-Tab ER] 20 meq PO BID Pantoprazole Sodium [Protonix] 40 mg PO DAILY Morphine Sulfate [Morphine Sulfate ER] 60 mg PO Q8-10H PRN PRN Reason: Pain Metformin HCl 1,000 mg PO BID Lisinopril [Zestril] 5 mg PO DAILY Insulin Glargine [Lantus] 12 unit SQ HS Empagliflozin [Jardiance] 25 mg PO DAILY Insulin LISPRO [HumaLOG] 0 units SQ TIDWM Gabapentin [Neurontin] 800 mg PO QID Furosemide [Lasix] 40 mg PO DAILY Colestipol HCl [Colestid] 2 gm PO BID clonazePAM [Klonopin] 1 mg PO TID Albuterol Sulfate [Albuterol Inhaler] 1 puff IH Q6-8H PRN PRN Reason: Wheezing Aripiprazole [Abilify] 15 mg PO HS Percocet 10/325 MG 20 mg PO Q8H PRN PRN Reason: Pain Home Medications: Albuterol Sulfate [Albuterol Inhaler] 1 puff IH Q6-8H PRN 06/28/18 [History] Albuterol Sulfate [Proair Hfa] 2 puff IH Q6-12H PRN 06/28/18 [History] Aripiprazole [Abilify] 15 mg PO HS 06/28/18 [History] Citalopram Hydrobromide [Celexa] 60 mg PO HS 06/28/18 [History] Colestipol HCl [Colestid] 2 gm PO BID 06/28/18 [History] Empagliflozin [Jardiance] 25 mg PO DAILY 06/28/18 [History] Furosemide [Lasix] 40 mg PO DAILY 06/28/18 [History] Gabapentin [Neurontin] 800 mg PO QID 06/28/18 [History] Insulin Glargine [Lantus] 12 unit SQ HS 06/28/18 [History] Insulin LISPRO [HumaLOG] 0 units SQ TIDWM 06/28/18 [History] Lisinopril [Zestril] 5 mg PO DAILY 06/28/18 [History] Metformin HCl 1,000 mg PO BID 06/28/18 [History] Morphine Sulfate [Morphine Sulfate ER] 60 mg PO Q8-10H PRN 06/28/18 [History] Pantoprazole Sodium [Protonix] 40 mg PO DAILY 06/28/18 [History] Percocet 10/325 MG 20 mg PO Q8H PRN 06/28/18 [History] Potassium Chloride [K-Tab ER] 20 meq PO BID 06/28/18 [History] Ropinirole HCl [Requip] 2 mg PO BID 06/28/18 [History] Tizanidine HCl [Zanaflex] 4 mg PO TID 06/28/18 [History] clonazePAM [Klonopin] 1 mg PO TID 06/28/18 [History] Aspirin 81 mg PO DAILY #30 tab.chew 06/29/18 [Rx] Atorvastatin [Lipitor] 40 mg PO HS #30 tablet 06/29/18 [Rx] Allergies/Adverse Reactions: Allergy/AdvReac Type Severity Reaction Status Date / Time NSAIDS (Non-Steroidal Allergy Rash Verified 06/13/16 21:52 Anti-Inflamma Date of admission: 06/28/18 15:16 Primary care physician: Diogo Salvador MD Consults: 06/29/18 08:52 Consult to Neurology [CONS] Routine Consulting Provider: [facility] Reason for Consult: right sided weakness Time Notified: 08:52 Call Completed: Yes Discharging clinician: Yosi Johansen Anticipated date of discharge: 06/29/18 - Constitutional Vitals: Temp Pulse Resp BP Pulse Ox 98.2 F 84 17 112/77 92 06/29/18 15:37 06/29/18 15:37 06/29/18 15:37 06/29/18 15:37 06/29/18 15:37 Exam: Gen: Vitals noted. No acute distress. Eyes: anicteric sclerae, moist conjunctivae; no lid-lag; Pupils equal and reactive to light HENT: Atraumatic; oropharynx clear with moist mucous membranes and no mucosal ulcerations; normal hard and soft palate Neck: Trachea midline; supple, no thyromegaly or lymphadenopathy Cardiac: RRR, no murmur, +S1/S2 Pulmonary: CTA bilaterally, no wheezes, rales or rhonchi, equal chest expansion Abdomen: soft, nontender, no guarding. No masses or hepatosplenomegaly MSK: ROM intact, no joint swelling noted Extremities: no BLE edema, nontender calf, no cyanosis or clubbing Skin: Normal temperature, turgor and texture; no rash, ulcers or subcutaneous nodules Neuro: moves all extremities, 4/5 supervisor purification strength in RUE Psych: Appropriate mood and behavior. A&Ox3 - Patient Status Disposition: Home, Self-Care Condition: Good Functional capacity at discharge: independent ambulation - Discharge Instructions Instructions: Diabetes Mellitus Type 2 in Adults (DC) Follow Up With: Diogo Salvador MD [Primary Care Provider] - (Appointment has been requested. ) Additional Instructions: 1. Continue Aspirin and Atorvastatin 2. Follow-up with Neurology as directed for more testing 3. 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 Brewer is a 57 year old female - Time Spent with Patient Total time spent providing and/or coordinating discharge services: Time spent: Less than 30 minutes (15 min) Date of admission: 06/28/18 15:16 Primary care physician: Diogo Salvador MD Consults: 06/29/18 08:52 Consult to Neurology [CONS] Routine Consulting Provider: [facility] Reason for Consult: right sided weakness Time Notified: 08:52 Call Completed: Yes - Constitutional Vitals: Temp Pulse Resp BP Pulse Ox 98.2 F 84 17 112/77 92 06/29/18 15:37 06/29/18 15:37 06/29/18 15:37 06/29/18 15:37 06/29/18 15:37 - Attending Attestation I saw evaluated and examined this patient and my medical decision-making was reviewed with the Resident Physician, Yosi Johansen. I agree with the documented findings, disposition and treatment plan as described except to any changes set forth below. We independently had [id number] contact with the patient. 57-year-old female patient with history of diabetes, hypertension was hospitalized here after presenting with complaints of right upper and lower extremity weakness with concerns for acute stroke. She did. Some facial drooping and weakness of her tongue muscles on initial evaluation. She underwent MRI of the brain after head CT, CT angiogram of the head and neck did not reveal any acute stroke. MRI of the brain also did not show any acute stroke. She underwent carotid Dopplers which did not show any significant stenosis. Echocardiogram also did not show any significant abnormalities. By this morning, her symptoms are mostly resolved. She has been evaluated by neurology and recommended a CT scan of her cervical spine which showed degenerative disease at multiple levels. She will follow up with neurology for EMG testing. At this time she is clinically stable to be discharged home. She does not require further physical therapy. Her symptoms have almost completely resolved. On exam, patient is awake and alert. She is normal strength in her right upper and lower extremities. S1 and S2 are normal. Breath sounds are normal. Abdomen is soft, nontender.
--- NOTE | 2018-07-01 21:58 | Electrocardiograph Report ---
[address] [address] Test Date: 2018-06-28 Pat Name: Adelina Brewer Department: EXAM6 Room: 3B45 Gender: F Pearl Maker: : [id number] Requested By: Rashaun Arnold Order Number: [id number] Reading MD: Pauline Burns Measurements Intervals [place] Rate: 78 P: 35 IA: 134 QRS: 73 QRSD: 98 T: 24 QT: 413 QTc: 471 Interpretive Statements Sinus rhythm Electronically Signed On 07-01-2018 21:56:27 EDT by Pauline Burns
== END 2018-06-29 17:52 | disposition home or self-care (01) ==
LOC: 3BNU 12:35 → EMEROOARM 12:35 → 3BNU 16:24
PROVIDERS: ADMIT Internal Medicine; ATTEND Internal Medicine

== ENCOUNTER 2019-03-19 01:23 | Observation (INO) ==
[2019-03-19] MEDS ORDERED: *HR* Promethazine 25 MG/ML VIAL IVP ONE ×3 (01:39→03:22)
[2019-03-19] MEDS ORDERED: 0.9 % Sodium Chloride 1,000 ML IVC ONE (01:39)
[2019-03-19 02:50] LABS: Basophils % 0.4 %; Eosinophils # 0.1 K/mcL (0.0-0.6); Eosinophils % 0.7 %; Hematocrit 41.5 % (35.3-44.9); Hemoglobin 14.1 g/dL (11.5-15.4); Immature Granulocytes % 0.3 % (0-4); Lymphocytes # 2.5 K/mcL (0.6-4.6); Lymphocytes % 26.1 %; Mean Corpuscular Volume 94.3 fL (83.0-100.0); Mean Platelet Volume 9.8 fL (9.4-12.4); Monocytes # 0.6 K/mcL (0.0-1.3); Monocytes % 6.7 %; Neutrophils # 6.3 K/mcL (1.6-8.9); Platelet Count 230 K/mcL (140-400); Red Cell Distribution Width 13.4 % (11.5-14.5); Segmented Neutrophils % 65.8 %; White Blood Count 9.6 K/mcL (4.3-11.1)
[2019-03-19 02:55] LABS: Bilirubin,Urine Negative (Negative); Blood,Urine Negative (Negative); Clarity,Urine Clear (Clear); Color,Urine Yellow (Yellow); Glucose,Urine (UA) Normal (Normal); Ketones,Urine 15 mg/dL (Negative); Leukocyte Esterase,Urine Trace (Negative); Nitrite,Urine Negative (Negative); PH,Urine 5.5 pH Units (5.0-8.0); Protein,Urine Trace mg/dL (Neg-Trace); Specific Gravity,Urine 1.022 (1.010-1.025); Urobilinogen,Urine Normal (Normal)
[2019-03-19 02:57] LABS: Bacteria,Urine Few per hpf (None-Few); Hyaline Casts,Urine None Seen per lpf (None-Few); RBC,Urine 0-3 per hpf (0-3); Squamous Epithelial Cell,Urine Many per lpf (None-Few)
[2019-03-19 03:05] LABS: Alanine Aminotransferase 23 Units/L (7-52); Albumin 4.2 g/dL (3.5-5.7); Albumin/Globulin Ratio 1.6 (1.1-2.2); Alkaline Phosphatase 97 Units/L (34-104); Aspartate Amino Transferase 24 Units/L (13-39); BUN/Creatinine Ratio 16 (6-26); Bilirubin,Total 0.5 mg/dL (0.3-1.0); Blood Urea Nitrogen 15 mg/dL (6-20); Calcium 9.2 mg/dL (8.6-10.3); Carbon Dioxide 18 mEq/L (23-29); Chloride 111 mEq/L (98-107); Globulin 2.7 g/dL (2.4-3.5); Glucose 114 mg/dL (70-105); Lipase 17 Units/L (11-82); Osmolality,Calculated 290 (280-300); Potassium 3.9 mEq/L (3.5-5.1); Sodium 139 mEq/L (136-145); Total Protein 6.9 g/dL (6.4-8.9); eGFR For African Americans > 60 (> 60); eGFR For Non-African Americans > 60 (> 60)
[2019-03-19] MEDS ORDERED: Isovue-370 500 ML BOTTLE IVP ONE (03:34)
[2019-03-19] MEDS ORDERED: Doxycycline 100 MG in 0.9 % Sodium Chloride Mini Bag 100 ML IVPB ONE (04:54)
[2019-03-19] MEDS ORDERED: cefTRIAXone 1,000 MG in 0.9 % Sodium Chloride Mini Bag 100 ML IVPB ONE (04:56)
[2019-03-19] MEDS ORDERED: Naloxone 0.4 MG/ML INJ IVP PRN (05:40)
[2019-03-19] MEDS ORDERED: Ondansetron 4 MG/2 ML VIAL IVP PRN (05:40)
[2019-03-19] MEDS ORDERED: Ringers Solution, Lactated 1,000 ML IVC SCH (05:45)
[2019-03-19] MEDS ORDERED: *HR* Heparin 5,000 UNIT/ML VIAL SQ SCH (06:00)
[2019-03-19] MEDS ORDERED: Acetaminophen 325 MG TABLET PO PRN (06:07)
[2019-03-19] MEDS ORDERED: MetroNIDAZOLE 500 MG/100 ML 500 MG/100 ML BAG IVPB SCH (06:09)
[2019-03-19] MEDS: Insulin LISPRO 300 UNITS/3 ML VIAL SQ SCH ×2 (08:03→12:40)
[2019-03-19] MEDS: Gabapentin 400 MG CAPSULE PO SCH ×2 (08:03→13:52)
[2019-03-19] MEDS: tiZANidine 4 MG TABLET PO SCH ×2 (08:04→13:52)
[2019-03-19] MEDS ORDERED: COLESTIPOL HCL 2 GM PO SCH (09:00)
[2019-03-19] MEDS ORDERED: clonazePAM 1 MG TABLET PO SCH (09:00)
[2019-03-19] MEDS ORDERED: rOPINIRole 1 MG TABLET PO SCH (09:00)
[2019-03-19] MEDS ORDERED: Ketorolac 15 MG/ML VIAL IVP PRN (09:55)
[2019-03-19] MEDS ORDERED: clonazePAM 0.5 MG TABLET PO SCH (15:00)
[2019-03-19 15:13] VITALS: BP 130/79
[2019-03-19] MEDS ORDERED: Doxycycline 100 MG in 0.9 % Sodium Chloride Mini Bag 100 ML IVPB SCH (17:00)
[2019-03-19] MEDS ORDERED: Insulin LISPRO 300 UNITS/3 ML VIAL SQ SCH (21:00)
[2019-03-20] MEDS ORDERED: cefTRIAXone 1,000 MG in Water for inj. (sterile) 10 ML IVP SCH (09:00)
== END 2019-03-19 17:50 | disposition home or self-care (01) ==
LOC: 3NENU 01:23 → EMEROOARM 01:23 → SUATTDRO 05:45 → 3NENU 06:28
PROVIDERS: ADMIT Family Medicine; ATTEND Internal Medicine

== ENCOUNTER 2020-08-15 11:04 | Observation (INO) ==
[~2020-08-15 11:04] MED LIST: Acetaminophen IV 1,000 MG/100 ML BAG IVPB ONE; Famotidine 20 MG/2 ML VIAL IVP ONE
[2020-08-15] MEDS ORDERED: *HR* OxyCODONE Immed Rel 5 MG TABLET PO PRN (11:54)
[2020-08-15] MEDS ORDERED: *HR* FentaNYL (PF) 100 MCG/2 ML VIAL IVP PRN (11:54)
[2020-08-15] MEDS ORDERED: Albuterol 2.5 MG/3 ML NEBULIZER IH PRN (11:54)
[2020-08-15] MEDS ORDERED: Nitroglycerin 0.4 MG TAB.SUBL SL PRN (11:54)
[2020-08-15] MEDS ORDERED: Naloxone 0.4 MG/ML INJ IVP PRN ×2 (11:54→18:48)
[2020-08-15] MEDS ORDERED: Ondansetron 4 MG/2 ML VIAL IVP PRN ×2 (11:54→18:48)
[2020-08-15] MEDS ORDERED: Ringers Solution, Lactated 1,000 ML IVC ONE (12:30)
[2020-08-15] MEDS ORDERED: Ropivacaine/PF 0.5% 30 ML VIAL ONE (13:34)
[2020-08-15] MEDS ORDERED: ROPIVACAINE/PF/NS 0.25% 1 EACH SYRINGE INTRAART ONE (13:34)
[2020-08-15] MEDS ORDERED: *HR* Propofol 200 MG/20 ML VIAL IVP ONE (13:41)
[2020-08-15] MEDS ORDERED: Lidocaine -MPF 2% 2 ML VIAL ONE (13:42)
[2020-08-15] MEDS ORDERED: Lidocaine/EPI 1:100k 1% 20 ML VIAL ONE (14:10)
[2020-08-15] MEDS ORDERED: *HR* FentaNYL (PF) 100 MCG/2 ML VIAL ONE (14:29)
[2020-08-15] MEDS ORDERED: MethylPREDNISolone 40 MG/ML VIAL ONE (14:50)
[2020-08-15] MEDS ORDERED: Acetaminophen 325 MG TABLET PO PRN (18:48)
[2020-08-15] MEDS ORDERED: Dextrose Gel 15 GM/37.5 ML TUBE PO PRN ×2 (20:02)
[2020-08-15] MEDS ORDERED: D5% in Water 1,000 ML IVC PRN (20:02)
[2020-08-15] MEDS ORDERED: *HR* Dextrose 50 % in Water (Vial) 50 ML VIAL IVP PRN (20:02)
[2020-08-15] MEDS ORDERED: Insulin DETEMIR 100 UNIT/ML X5UNITS SUBQ SCH (21:00)
[2020-08-15] MEDS: clonazePAM 1 MG TABLET PO SCH (21:32)
[2020-08-15] MEDS: Pregabalin 75 MG CAPSULE PO SCH (21:33)
[2020-08-15] MEDS: rOPINIRole 1 MG TABLET PO SCH (21:33)
[2020-08-15] MEDS: *HR* Heparin 5,000 UNIT/ML VIAL SQ SCH (21:33)
[2020-08-15] MEDS: Insulin LISPRO 300 UNITS/3 ML VIAL SUBQ SCH (22:07)
[2020-08-15] MEDS: Ipratropium/Albuterol Neb 3 ML IH SCH (23:35)
[2020-08-16] MEDS: MethylPREDNISolone 40 MG/ML VIAL IVP SCH ×2 (00:10→06:01)
[2020-08-16 01:18] LABS: Hematocrit 33.8 % (35.3-44.9); Hemoglobin 10.8 g/dL (11.5-15.4); Mean Corpuscular Hemoglobin 31.4 pg (28.0-33.3); Mean Corpuscular Volume 98.3 fL (83.0-100.0); Mean Platelet Volume 10.4 fL (9.4-12.4); Platelet Count 191 K/mcL (140-400); Red Blood Count 3.44 M/mcL (3.82-4.97); White Blood Count 8.5 K/mcL (4.3-11.1)
[2020-08-16 01:38] LABS: BUN/Creatinine Ratio 24 (6-26); Blood Urea Nitrogen 16 mg/dL (6-20); Calcium 8.9 mg/dL (8.6-10.3); Carbon Dioxide 22 mEq/L (23-29); Chloride 102 mEq/L (98-107); Glucose 379 mg/dL (70-105); Magnesium 1.8 mg/dL (1.6-2.6); Osmolality,Calculated 299 (280-300); Potassium 4.5 mEq/L (3.5-5.1); Sodium 136 mEq/L (136-145); eGFR For African Americans > 60 (> 60); eGFR For Non-African Americans > 60 (> 60)
[2020-08-16] MEDS: Insulin LISPRO 300 UNITS/3 ML VIAL SUBQ SCH ×2 (01:50→06:01)
[2020-08-16] MEDS: Ipratropium/Albuterol Neb 3 ML IH SCH ×3 (03:48→11:25)
[2020-08-16] MEDS: *HR* Heparin 5,000 UNIT/ML VIAL SQ SCH (05:55)
[2020-08-16 07:51] VITALS: BP 125/64
[2020-08-16] MEDS: rOPINIRole 1 MG TABLET PO SCH (09:26)
[2020-08-16] MEDS: Pregabalin 75 MG CAPSULE PO SCH (09:26)
[2020-08-16] MEDS: clonazePAM 1 MG TABLET PO SCH (09:27)
== END 2020-08-16 11:30 | disposition home or self-care (01) ==
LOC: 3NENU 11:04 → SAMDAYPAV 11:04 → 3NENU 17:48
PROVIDERS: ADMIT Internal Medicine; ATTEND Internal Medicine